=== PATIENT | female | born 1985 | race Two or more races ===

== ENCOUNTER 2025-06-05 05:12 | Inpatient (IN) | payer MEDICAID, OTHER ==
[~2025-06-05] VITALS: Ht 165.1 cm; Wt 105.3 kg
[2025-06-05] VITALS (7 sets, daily range): BP systolic 98–125; BP diastolic 67–76; PULSE 65–121; RESP 14–19; TEMP 97.7–98.9; O2SAT 95–100
[2025-06-05] MEDS: KETOROLAC TROMETH 30 MG/ML 1ML VIAL IV ONE (06:27)
--- NOTE | 2025-06-05 06:27 | ED.PDOC ---
History of Present Illness HPI Comments 40 y.o female presents to the ED via EMS for an evaluation of anxiety associated with chest pain and palpitations s/p taking a 50mg THC gummy earlier today. Patient reports taking gummy due to a persistent headache. She denies any fever, chills, abdominal pain, vision changes or dizziness. She has no medical history or allergies. Chief Complaint: Anxiety Time Seen by MD: 06:19 Reviewed Notes: Nurses Notes, Chemical Analytical Sampler Notes, Medications, Allergies Allergies: Coded Allergies: NO KNOWN ALLERGIES (Unverified , 06/05/25) Home Meds Active Scripts Meclizine HCl (Meclizine 25) 25 Mg Tab, 25 MG PO DAILY for 5 Days, #5 TAB Prov:BARRERA NORTH MD 06/05/25 Information Source: Patient Mode of Arrival: EMS Severity: Moderate Timing: Hours Duration: Since onset Past Medical History PAST MEDICAL HISTORY: Denies Surgical History: Denies all surgeries MINE UTILITY OPERATOR History: No Pertinent MINE UTILITY OPERATOR History Family History Family History: Reviewed,noncontributory to illness Social History Smoker: Non-Smoker Alcohol: Denies ETOH Use Drugs: Marijuana Lives In: Home Constitutional: denies: chills, diaphoresis, fatigue, fever, malaise, sweats, weakness, others EENTM: denies: blurred vision, double vision, ear bleeding, ear discharge, ear drainage, ear pain, ear ringing, eye pain, eye redness, hearing loss, mouth pain, mouth swelling, nasal discharge, nose bleeding, nose congestion, nose pain, photophobia, tearing, throat pain, throat swelling, voice changes, others Respiratory: denies: cough, hemoptysis, orthopnea, SOB at rest, shortness of breath, SOB with excertion, stridor, wheezing, others Cardiovascular: reports: chest pain, palpitations; denies: dizzy spells, diap horesis, Dyspnea on exertion, edema, irregular heart beat, left arm pain, lightheadedness, PND, syncope, others Gastrointestinal: denies: abdomen distended, abdominal pain, blood streaked bowels, constipated, diarrhea, dysphagia, difficulty swallowing, hematemesis, melena, nausea, poor appetite, poor fluid intake, rectal bleeding, rectal pain, vomiting, others Genitourinary: denies: abnormal vagina bleeding, burning, dyspareunia, dysuria, flank pain, frequency, hematuria, incontinence, pain, , vagina discharge, urgency, others Neurological: reports: headache; denies: dizziness, fainting, left sided numbness, left sided weakness, numbness, paresthesia, pre-existing deficit, right sided numbness, right sided weakness, seizure, speech problems, tingling, tremors, weakness, others Musculoskeletal: denies: back pain, gout, joint pain, joint swelling, muscle pain, muscle stiffness, neck pain, others Integumetry: denies: bruises, change in color, change in hair/nails, dryness, laceration, lesions, lumps, rash, wounds, others Allergic/Immunocompromised: denies: Difficulty Healing, Frequent Infections, Hives, Itching, others Hematologic/Lymphatic: denies: anemia, blood clots, easy bleeding, easy bruising, swollen glands, others Endocrine: denies: excessive hunger, excessive sweating, excessive thirst, excessive urination, flushing, intolerance to cold, intolerance to heat, unexplained weight gain, unexplained weight loss, others Psychiatric: reports: anxiety; denies: bipolar disorder, depression, hopeless, panic disorder, schizophrenia, sleepless, suicidal, others All Other Systems: Reviewed and Negative Physical Exam General Appearance: Moderate Distress HEENT: Normal ENT Inspection, Pharynx Normal, TMs Normal Neck: Full Range of Motion, Non-Tender, Normal, Normal Inspection Respiratory: Chest Non-Tender, Lungs Clear, No Accessory Muscle Use, No Respiratory Distress, Normal Breath Sounds Cardiovascular: No Edema, No JVD, No Murmur, No Gallop, Normal Peripheral Pulses, Regular Rate/Rhythm Breast Exam: Deferred Gastrointestinal: No Organomegaly, Non Tender, No Pulsatile Mass, Normal Bowel Sounds, Soft Genitalia: Deferred Pelvic: Deferred Rectal: Deferred Extremities: No calf tenderness, Normal capillary refill, Normal inspection, Normal range of motion, Non-tender, No pedal edema Musculoskeletal : Apperance: Normal Neurologic: Alert, respiratory technician II-XII nml as Tested, No Motor Deficits, Normal Affect, Normal Mood, No Sensory Deficits Cerebellar Function: Normal Reflexes: Normal Skin: Dry, Normal Color, Warm Peripheral Pulses: 3+ Radial (R), 3+ Radial (L) Lymphatic: No Adenopathy Was a procedure done? Was a procedure done?: No EKG EKG : Pulse Rate (adult): 109 [place]: Normal Cardiac Rhythm: ST Block: None Hypertrophy: None ST: Normal Differential Dx Considerations may include: cannabis-induced anxiety disorder, Angina, Electrolyte imbalance, Migraine, Clustered headache. X-Ray, Labs, Meds, VS Vital Signs Date Time Temp Pulse Resp B/P (MAP) Pulse Ox O2 Delivery O2 Flow Rate FiO2 06/05/25 08:00 99.5 108 15 126/76 (93) 98 99.5 06/05/25 06:27 109 06/05/25 06:00 97.8 107 15 133/75 (94) 98 97.8 06/05/25 05:40 107 15 98 Room Air* 0 21 06/05/25 05:25 109 06/05/25 05:15 98.5 115 18 164/94 100 98.5 Lab Test 06/05/25 09:00 06/05/25 08:26 06/05/25 06:47 Range/Units Troponin I High Sensitivity 63 *H 56 *H </=34 ng/L Urine Color Light-yellow Yellow Urine Clarity Clear Clear Urine pH 7.0 5.0-9.0 Urine Specific [place] 1.012 1.001-1.035 Urine Protein Negative Negative Urine Ketones Negative Negative Urine Blood Negative Negative /uL Urine Nitrite Negative Negative Urine Bilirubin Negative Negative Urine Urobilinogen Normal Negative mg/dL Urine Leukocyte Esterase Negative Negative /uL Urine RBC <1 0 - 4 /hpf Urine Microscopic WBC < 1 0-5 /HPF Urine Squamous Epithelial Cells Few <5 /hpf Urine Bacteria None seen None Seen /hpf Urine Yeast (Budding) Occasional None Seen /hpf Urine Glucose Normal Normal mg/dL White Blood Count 12.9 H 4.4-10.8 10^3/uL Red Blood Count 4.61 4.0-5.20 10^6/uL Hemoglobin 14.3 12.2-16.2 g/dL Hematocrit 41.6 36.0-46.0 % Mean Corpuscular Volume 90.1 80.0-100.0 fL Mean Corpuscular Hemoglobin 31.0 28.0-32.0 pg Mean Corpuscular Hemoglobin Concent 34.4 32.0-36.0 g/dL Red Cell Distribution Width 13.5 11.8-14.3 % Platelet Count 264 140-450 10^3/uL Mean Platelet Volume 9.6 6.9-10.8 fL Neutrophils (%) (Auto) 78.8 37.0-80.0 % Lymphocytes (%) (Auto) 13.2 10.0-50.0 % Monocytes (%) (Auto) 7.0 0.0-12.0 % Eosinophils (%) (Auto) 0.6 0.0-7.0 % Basophils (%) (Auto) 0.4 0.0-2.0 % Neutrophils # (Auto) 10.2 H 1.6-8.6 10 ^3/uL Lymphocytes # (Auto) 1.7 0.4-5.4 10 ^3/uL Monocytes # (Auto) 0.9 0-1.3 10 ^3/uL Eosinophils # (Auto) 0.1 0-0.8 10 ^3/uL Basophils # (Auto) 0.1 0-0.2 10 ^3/uL Nucleated Red Blood Cells 0.0 % Sodium Level 140 136-145 mmol/L Potassium Level 3.7 3.5-5.1 mmol/L Chloride Level 107 98-107 mmol/L Carbon Dioxide Level 22 20-31 mmol/L Anion Gap 11 5-15 Blood Urea Nitrogen 6 L 9-23 mg/dL Creatinine 0.68 0.550-1.02 mg/dL Glomerular Filtration Rate Calc 112 >90 mL/min BUN/Creatinine Ratio 8.8 L 10.0-20.0 Serum Glucose 138 H 74-106 mg/dL Calcium Level 9.6 8.7-10.4 mg/dL Current Medications Medications (Trade) Dose Ordered Sig/Daniela Route Start Time Stop Time Status Last Admin Ketorolac Tromethamine (Toradol Injection) 30 mg ONCE ONCE IV 06/05/25 06:30 06/05/25 06:31 DC 06/05/25 06:27 Aspirin 325 mg ONCE ONCE PO 06/05/25 06:30 06/05/25 06:31 DC 06/05/25 06:28 Patient alert. Vitals stable. Answering all questions. Moving all extremities. No distress. Saturation pristine on room air. Was given aspirin. Was given Toradol. She is comfortable. No acute process. No risk factors coronary artery disease. Came in because of chest pain. Cardiac marker elevated pain Was given aspirin. Was given pain medication. Possibly mitral valve. Echocardiogram. Cardiology consultation. Continue monitoring. [facility] approved inpatient admission [id number]. Time of 1ST Reevaluation: 06:27 Reevaluation 1ST: Unchanged Patient Education/Counseling: Diagnosis, Treatment, Prognosis Family Education/Counseling: No Family Present SEPSIS Sepsis Screen Date sepsis recognized/suspect: Jun 05, 2025 Time Sepsis recognized/suspect: 0540 Recent Procedure: No On Antibiotic Therapy: No Respiratory Rate >20: No Heart Rate >90: No Temp<36 C (96.8 F) or >38.3 C: No SBP <90 or MAP <65 mmHG: No New Acute Mental Status Change: No Is the patient on CPAP, BIPAP,: No Physician Orders Electrocardigram (06/05/25 05:34) Chest Portable (06/05/25 08:06) Troponin-I Hs (06/05/25 09:06) Vital Signs Date Time Temp Pulse Resp B/P (MAP) Pulse Ox O2 Delivery O2 Flow Rate FiO2 06/05/25 08:00 99.5 108 15 126/76 (93) 98 99.5 06/05/25 06:27 109 06/05/25 06:00 97.8 107 15 133/75 (94) 98 97.8 06/05/25 05:40 107 15 98 Room Air* 0 21 06/05/25 05:25 109 06/05/25 05:15 98.5 115 18 164/94 100 98.5 Laboratory Tests Test 06/05/25 06:47 White Blood Count 12.9 10^3/uL (4.4-10.8) H Medications Medications Dose Ordered Sig/Daniela Route Start Time Stop Time Status Last Admin Dose Admin Aspirin 325 mg ONCE ONCE PO 06/05/25 06:30 06/05/25 06:31 DC 06/05/25 06:28 Ketorolac Tromethamine 30 mg ONCE ONCE IV 06/05/25 06:30 06/05/25 06:31 DC 06/05/25 06:27 Departure 1 Departure Time of Disposition: 06:45 Impression: Primary Impression: Chest pain of unknown etiology Additional Impressions: Autonomic disorder Demand ischemia Disposition: ADMITTED INPATIENT Admit to: Med Surg Condition: Guarded e-Prescriptions Meclizine HCl (Meclizine 25) 25 Mg Tab 25 MG PO DAILY for 5 Days, #5 TAB Prov: BARRERA NORTH MD 06/05/25 Discharged With: Self Critical Care Note Critical Care Time?: Yes (90 min-critical care time only) Stability Stability form required: No I personally scribed for BARRERA NORTH MD ([facility]) on 06/05/25 at 06:27. Electronically submitted by Lenora Cortes ([facility]). BARRERA NORTH MD Jun 05, 2025 06:27
[2025-06-05] MEDS ORDERED: MECL1TAB42 PO (06:46)
[2025-06-05] MEDS: ONDANSETRON HCL 4 MG/2 ML VIAL IV ONE (08:22)
[2025-06-05] MEDS: NITROGLYCERIN 0.4 MG SL TAB SL ONE (08:23)
[2025-06-05] MEDS: MORPHINE SULFATE 4 MG/ML SYR/VIAL IV ONE (08:23)
--- NOTE | 2025-06-05 08:57 | DVH ---
EXAM: XY CHEST PORTABLE CLINICAL HISTORY: sob TECHNIQUE: Single AP view of the chest WID: COMPARISON: None FINDINGS: Lines and tubes: None Chest: Mild cardiomegaly with mild prominence of the central pulmonary vasculature. No pleural effusion, pneumothorax, or consolidation. Limited depth of inspiration. The osseous structures are grossly intact. IMPRESSION: 1. Mild cardiomegaly with mild prominence of the central pulmonary vasculature.
[2025-06-05 09:28] LABS: Urine Budding Yeast OCCASIONAL /hpf (None Seen); Urine Protein, UAD Negative (Negative)
[2025-06-05 09:29] LABS: Chloride 107 mmol/L (98-107); Potassium 3.7 mmol/L (3.5-5.1); Sodium 140 mmol/L (136-145)
[2025-06-05 09:30] LABS: Anion Gap 11 (5-15); Carbon Dioxide 22 mmol/L (20-31); Hematocrit 41.6 % (36.0-46.0); Hemoglobin 14.3 g/dL (12.2-16.2); Mean Corpuscular Hemoglobin 31.0 pg (28.0-32.0); Mean Corpuscular Volume 90.1 fL (80.0-100.0); Nucleated Red Blood Cells % 0.0 %
[2025-06-05 09:31] LABS: Calcium 9.6 mg/dL (8.7-10.4)
[2025-06-05 09:36] LABS: BUN/Creatinine Ratio 8.8 (10.0-20.0)
[2025-06-05 09:42] LABS: Blood Urea Nitrogen 6 mg/dL (9-23); Glucose 138 mg/dL (74-106)
[2025-06-05] MEDS ORDERED: NITROGLYCERIN 0.4 MG SL TAB SL PRN (12:15)
[2025-06-05] MEDS ORDERED: MORPHINE SULFATE INJ 2 MG/ml SYRG IV PRN ×2 (12:15→14:00)
[2025-06-05] MEDS: SODIUM CHLORIDE 0.9% 500 ML IV ONE ×2 (12:36→14:00)
[2025-06-05 13:26] LABS: Lactic Acid w/Reflex 2.8 mmol/L (0.4-2.0)
[2025-06-05 13:29] LABS: COVID19 ANTIGEN SOFIA FIA NEGATIVE (NEGATIVE)
--- NOTE | 2025-06-05 13:40 | DVHHPRES ---
History of Present Illness Resident Creating Document: KOURTNEYELIAS RESIDENT History of Present Illness Patient is a 40-year-old female with no significant medical history presented to the ED with a chief complaint of palpitations and shortness of breath which started earlier this morning. Patient reported that she was having headache in the morning following which she took a THC gummy and started to have shortness of breath and started feeling palpitations after that but denied any chest pain, nausea or vomiting following which she was brought to the ER for further evaluation. Patient denied any cough, phlegm, fever but reported having chills in the morning. Patient reports that she was recently diagnosed with a high ocular pressure for which she was prescribed latanoprost and was recently taken off latanoprost by her field trainer. Patient reports the headache last for hours, no photophobia, on the left side radiating from the left frontal to the left occipital, gets worse with the patient sits up and improves on lying down. Patient denied any other complaints of dysuria, diarrhea Medical history: Denies Surgical history: Denies Social history: Patient was a previous smoker of for about 5 years less than half a pack a day, denies any drug or alcohol use Home medications: None Review of Systems Review of Systems Patient reports to be feeling weak and reports she feels like she is high No chest pain Mild shortness of breath but is saturating more than 95% on room air Feels mildly anxious Allergies: Coded Allergies: NO KNOWN ALLERGIES (Unverified , 06/05/25) Medications Current Medications Medications Dose Ordered Sig/Daniela Route Start Time Stop Time Status Last Admin Dose Admin Nitroglycerin 0.4 mg Q5MINP PRN SL 06/05/25 12:15 Morphine Sulfate 2 mg Q30M PRN IV 06/05/25 12:15 Ceftriaxone Sodium 50 ml @ 100 mls/hr DAILY@09 IV 06/06/25 09:00 Exam Vital Signs Vital Signs Date Time Temp Pulse Resp B/P (MAP) Pulse Ox O2 Delivery O2 Flow Rate FiO2 06/05/25 13:30 111 18 122/76 (91) 95 06/05/25 12:00 99.3 99.3 06/05/25 10:10 Room Air* 0 21 Exam Skin - Patients skin is warm and dry. HEENT - normocephalic, atraumatic, moist mucous membranes, no conjunctival pallor or scleral icterus Neck - full ROM, no LAD, no JVD Pulmonary - B/L clear breath sounds without any rales or wheezing cardiovascular - regular S1,S2 heard, no added sounds, no murmurs heard. GI - soft, nontender abdomen. Bowel sounds normoactive Neurological - Patient is A/O X 4 . Bilateral upper extremity strength 5/5, bilateral lower extremity strength 5/5, no facial droop, normal speech, no tremor, no sensory deficiets. Labs/Xrays Labs Test 06/05/25 12:35 06/05/25 12:34 06/05/25 11:00 06/05/25 08:26 Range/Units Influenza Type A Antigen Negative Negative Influenza Type B Antigen Negative Negative SARS-CoV-2 Antigen (Rapid) Negative NEGATIVE Lactic Acid Level 2.8 *H 0.4-2.0 mmol/L Troponin I High Sensitivity 53 *H </=34 ng/L Urine Color Light-yellow Yellow Urine Clarity Clear Clear Urine pH 7.0 5.0-9.0 Urine Specific [place] 1.012 1.001-1.035 Urine Protein Negative Negative Urine Ketones Negative Negative Urine Blood Negative Negative /uL Urine Nitrite Negative Negative Urine Bilirubin Negative Negative Urine Urobilinogen Normal Negative mg/dL Urine Leukocyte Esterase Negative Negative /uL Urine RBC <1 0 - 4 /hpf Urine Microscopic WBC < 1 0-5 /HPF Urine Squamous Epithelial Cells Few <5 /hpf Urine Bacteria None seen None Seen /hpf Urine Yeast (Budding) Occasional None Seen /hpf Urine Glucose Normal Normal mg/dL Test 06/05/25 06:47 Range/Units White Blood Count 12.9 H 4.4-10.8 10^3/uL Red Blood Count 4.61 4.0-5.20 10^6/uL Hemoglobin 14.3 12.2-16.2 g/dL Hematocrit 41.6 36.0-46.0 % Mean Corpuscular Volume 90.1 80.0-100.0 fL Mean Corpuscular Hemoglobin 31.0 28.0-32.0 pg Mean Corpuscular Hemoglobin Concent 34.4 32.0-36.0 g/dL Red Cell Distribution Width 13.5 11.8-14.3 % Platelet Count 264 140-450 10^3/uL Mean Platelet Volume 9.6 6.9-10.8 fL Neutrophils (%) (Auto) 78.8 37.0-80.0 % Lymphocytes (%) (Auto) 13.2 10.0-50.0 % Monocytes (%) (Auto) 7.0 0.0-12.0 % Eosinophils (%) (Auto) 0.6 0.0-7.0 % Basophils (%) (Auto) 0.4 0.0-2.0 % Neutrophils # (Auto) 10.2 H 1.6-8.6 10 ^3/uL Lymphocytes # (Auto) 1.7 0.4-5.4 10 ^3/uL Monocytes # (Auto) 0.9 0-1.3 10 ^3/uL Eosinophils # (Auto) 0.1 0-0.8 10 ^3/uL Basophils # (Auto) 0.1 0-0.2 10 ^3/uL Nucleated Red Blood Cells 0.0 % Sodium Level 140 136-145 mmol/L Potassium Level 3.7 3.5-5.1 mmol/L Chloride Level 107 98-107 mmol/L Carbon Dioxide Level 22 20-31 mmol/L Anion Gap 11 5-15 Blood Urea Nitrogen 6 L 9-23 mg/dL Creatinine 0.68 0.550-1.02 mg/dL Glomerular Filtration Rate Calc 112 >90 mL/min BUN/Creatinine Ratio 8.8 L 10.0-20.0 Serum Glucose 138 H 74-106 mg/dL Calcium Level 9.6 8.7-10.4 mg/dL SEPSIS Sepsis Screen Date sepsis recognized/suspect: Jun 05, 2025 Time Sepsis recognized/suspect: 1235 Recent Procedure: No On Antibiotic Therapy: No Respiratory Rate >20: Yes Heart Rate >90: Yes Temp<36 C (96.8 F) or >38.3 C: No SBP <90 or MAP <65 mmHG: No New Acute Mental Status Change: No Is the patient on CPAP, BIPAP,: No Physician Orders Chest Portable (06/05/25 08:06) Electrocardigram (06/05/25 11:43) Electrocardigram (06/05/25 12:43) Electrocardigram (06/05/25 14:43) Admit (06/05/25 12:04) Nitroglycerin Sublingual (Ntrostat Subli (06/05/25 12:15) Oxygen By Nasal Cannula (06/05/25 12:04) Stat Ekg For Chest Pain (06/05/25 12:04) Notify Md Of Changes From Base (06/05/25 12:04) Airline Dispatcher For 24 Hours (06/05/25 12:04) Emergency Dysrhythmia Protocol (06/05/25 12:04) Blood Culture (06/05/25 12:04) Ceftriaxone 1gm/50ml (Rocephin) (06/06/25 09:00) Echo 2d Mode Cardiac Dop (06/05/25 12:04) Morphine Sulfate Injection (06/05/25 12:15) Sodium Chloride 0.9% (06/05/25 14:00) D-Dimer (06/05/25 13:36) Vital Signs Date Time Temp Pulse Resp B/P (MAP) Pulse Ox O2 Delivery O2 Flow Rate FiO2 06/05/25 13:30 111 18 122/76 (91) 95 06/05/25 12:00 99.3 114 15 140/85 (103) 98 99.3 06/05/25 10:10 99 Room Air* 0 21 06/05/25 10:07 115 18 100 Room Air* 0 21 06/05/25 10:00 116 15 121/77 (92) 98 06/05/25 08:00 99.5 108 15 126/76 (93) 98 99.5 06/05/25 06:27 109 06/05/25 06:00 97.8 107 15 133/75 (94) 98 97.8 06/05/25 05:40 107 15 98 Room Air* 0 21 Laboratory Tests Test 06/05/25 06:47 06/05/25 12:34 White Blood Count 12.9 10^3/uL (4.4-10.8) H Lactic Acid Level 2.8 mmol/L (0.4-2.0) *H Medications Medications Dose Ordered Sig/Daniela Route Start Time Stop Time Status Last Admin Dose Admin Aspirin 325 mg ONCE ONCE PO 06/05/25 06:30 06/05/25 06:31 DC 06/05/25 06:28 325 MG Ceftriaxone Sodium 50 ml @ 100 mls/hr ONCE ONCE IV 06/05/25 12:15 06/05/25 12:44 DC 06/05/25 12:41 100 MLS/HR Ketorolac Tromethamine 30 mg ONCE ONCE IV 06/05/25 06:30 06/05/25 06:31 DC 06/05/25 06:27 30 MG Sodium Chloride 500 ml @ 500 mls/hr Q1H ONCE IV 06/05/25 12:15 06/05/25 13:14 DC 06/05/25 12:36 500 MLS/HR Assessment/Plan Assessment/Plan Probable pneumonia likely due to Gram +/- bacteria Sepsis likely due to pneumonia Probable obstructive sleep apnea - IV antibiotics vanc+ceftriaxone - IV fluids - echocardiogram pending - blood cultures, sputum cultures pending NSTEMI likely type 2 due to demand ischemia from sepsis Cardiomegaly ?Pulmonary hypertension from [place] - ECG showed sinus rhythm without any acute ST or T-wave changes - IV fluids - echo pending PUD prophylaxis: Protonix DVT prophylaxis: Enoxaparin Goals of care discussed with the patient and her sister at bedside for over 90 minutes. Full code Time spent: 37 minutes Plan discussed with Dr. Carrington Plan discussed with: Patient, Other (RN, sisters) My Orders Orders - ELIAS OCONNELL RESIDENT Procedure Category Date Status Time Electrocardigram EKG 06/05/25 Logged 11:43 Electrocardigram EKG 06/05/25 Logged 12:43 Electrocardigram EKG 06/05/25 Logged 14:43 Admit ADMIT 06/05/25 Transmitted 12:04 Nitroglycerin PHA 06/05/25 In Process Sublingual (Ntrostat 12:15 Oxygen By Nasal RT 06/05/25 Transmitted Cannula 12:04 Stat Ekg For Chest ABRAN 06/05/25 In Process Pain 12:04 Notify Of Changes ABRAN 06/05/25 In Process From Base 12:04 Airline Dispatcher For ABRAN 06/05/25 In Process 24 Hours 12:04 Emergency Dysrhythmia ABRAN 06/05/25 In Process Protocol 12:04 Blood Culture KATE 06/05/25 In Process 12:04 Ceftriaxone 1gm/50ml PHA 06/06/25 In Process (Rocephin) 09:00 Echo 2d Mode Cardiac US 06/05/25 Logged DOP 12:04 Morphine Sulfate PHA 06/05/25 In Process Injection 12:15 Sodium Chloride 0.9% PHA 06/05/25 Logged 14:00 D-Dimer LAB 06/05/25 Logged 13:36 Date of Service: Jun 05, 2025 Billing Provider: MICHELA CARRINGTON MD Common Visit Codes: [id number] INP/OBS CARE (HIGH) Secondary Visit Codes: [id number] CARE PLAN 30 MINUTES ELIAS OCONNELL RESIDENT Jun 05, 2025 13:40
[2025-06-05] MEDS: PANTOPRAZOLE 40 MG TAB PO ONE (14:00)
[2025-06-05] MEDS ORDERED: KETOROLAC TROMETH 30 MG/ML 1ML VIAL IV PRN (14:00)
[2025-06-05] MEDS ORDERED: ONDANSETRON HCL 4 MG/2 ML VIAL IV PRN (14:00)
[2025-06-05] MEDS ORDERED: ACETAMINOPHEN 325 MG TAB PO PRN (14:00)
[2025-06-05] MEDS: DOXYCYCLINE 100 MG TAB/CAP PO ONE (14:00)
[2025-06-05] MEDS: LACTATED RINGER'S 1,000 ML IV ONE (16:00)
[2025-06-05] MEDS ORDERED: VANCOMYCIN PER PHARMACY 0 MG IV SCH (16:00)
[2025-06-05] MEDS: VANCOMYCIN 1.75GM/350ML 350 ML IV ONE (16:15)
[2025-06-05] MEDS ORDERED: DOXYCYCLINE 100 MG TAB/CAP PO SCH (22:00)
[2025-06-06] VITALS (8 sets, daily range): BP systolic 119–141; BP diastolic 73–92; PULSE 89–119; RESP 18–20; TEMP 96.7–98.2; O2SAT 96–99
[2025-06-06 05:52] LABS: Hematocrit 39.0 % (36.0-46.0); Hemoglobin 13.4 g/dL (12.2-16.2); Mean Corpuscular Hemoglobin 31.0 pg (28.0-32.0); Mean Corpuscular Volume 90.0 fL (80.0-100.0); Nucleated Red Blood Cells % 0.1 %
[2025-06-06] MEDS: PANTOPRAZOLE 40 MG TAB PO SCH (06:07)
[2025-06-06 06:08] LABS: Anion Gap 8 (5-15); Carbon Dioxide 26 mmol/L (20-31); Potassium 3.9 mmol/L (3.5-5.1); Sodium 143 mmol/L (136-145)
[2025-06-06 06:09] LABS: Chloride 109 mmol/L (98-107)
[2025-06-06 06:11] LABS: Calcium 8.6 mg/dL (8.7-10.4)
[2025-06-06 06:14] LABS: Glucose 92 mg/dL (74-106)
[2025-06-06 06:15] LABS: BUN/Creatinine Ratio 13.8 (10.0-20.0); Blood Urea Nitrogen 8 mg/dL (9-23)
[2025-06-06] MEDS: ENOXAPARIN SOD 40 MG/0.4 ML SYRINGE SC SCH (09:08)
[2025-06-06] MEDS: VANCOMYCIN 1.25GM/250ML 250 ML IV SCH (11:30)
--- NOTE | 2025-06-06 12:32 | DVHSR ---
APPROVED REPORT EXAM: Two-dimensional and M-mode echocardiogram with Doppler and color Doppler. Blood Pressure: 134/92 mmHg INDICATION SOB Pulm congestion Probable hari RISK FACTORS Obesity: Height: 5'5", Weight: 232 DIMENSIONS LVDd 4.7 (3.8-5.7cm) LA (2D) 3.4 (1.9-4.0cm) Aortic Root 3.1 (2.0-3.7cm) LVDs 3.1 (2.5-4.0cm) LA (MM) (1.9-4.0cm) Aortic Cusp Exc 1.8 (1.5-2.0cm) EF (%) 60.0 (55-70%) Rt. Atrium 3.0 (1.9-4.0cm) Asc. Aorta cm IVSd 0.7 (0.7-1.1cm) RV (D) (1.8-2.4cm) PWd 1.0 (0.7-1.1cm) Mitral Valve Mitral Mitral Stenosis E wave 1.12m/s MV Mean GR. mmHg A wave 0.72m/s MV Peak GR. mmHg E/A ratio 1.6 2D MVA cm2 DECEL Time 162ms PRESS 1/2 Time ms Aortic Valve Aortic Valve Aortic Stenosis V1 1.33m/s AO Mean GR. 4mmHg V2 1.44m/s AO Peak GR. 8mmHg LVOT Diameter 1.9 (1.8-2.4cm) Doppler JEMMA 2.62cm2 Pulmonic Valve V2 1.06m/s Other Information Technically limited study due to body habitus. Conclusion lvef 65% normal rv function normal atria no severe valve abnormalities noted
[2025-06-07] VITALS (8 sets, daily range): BP systolic 128–140; BP diastolic 68–93; PULSE 79–98; RESP 14–18; TEMP 97.6–98.8; O2SAT 97–100
[2025-06-07 10:41] LABS: Hematocrit 41.9 % (36.0-46.0); Hemoglobin 14.5 g/dL (12.2-16.2); Mean Corpuscular Hemoglobin 30.9 pg (28.0-32.0); Mean Corpuscular Volume 89.4 fL (80.0-100.0); Nucleated Red Blood Cells % 0.0 %
--- NOTE | 2025-06-07 12:02 | DVHPN2 ---
Reviewed: Care Plan, H&P, Labs, Medications, Previous Orders, Radiology Changes from previous H/P or p: No Changes General: Per HPI Objective Vitals Vital Signs Date Time Temp Pulse Resp B/P (MAP) Pulse Ox O2 Delivery O2 Flow Rate FiO2 06/07/25 08:58 98.3 79 18 138/80 (99) 98 98.3 06/07/25 08:00 Room Air* 0 21 Intake/Output Intake and Output 06/07/25 07:00 Intake Total 1550 ml Balance 1550 ml Intake Oral 1000 ml IV Total 550 ml # Voids 13 Medications Current Medications Medications Dose Ordered Sig/Daniela Route Start Time Stop Time Status Last Admin Dose Admin Nitroglycerin 0.4 mg Q5MINP PRN SL 06/05/25 12:15 Morphine Sulfate 2 mg Q30M PRN IV 06/05/25 12:15 Ceftriaxone Sodium 50 ml @ 100 mls/hr DAILY@09 IV 06/06/25 09:00 06/07/25 08:41 100 MLS/HR Acetaminophen 650 mg Q6HP PRN PO 06/05/25 14:00 Ketorolac Tromethamine 15 mg Q6HPRN PRN IV 06/05/25 14:00 06/10/25 13:59 Morphine Sulfate 2 mg Q6HPRN PRN IV 06/05/25 14:00 Ondansetron HCl 4 mg Q6HPRN PRN IV 06/05/25 14:00 Pantoprazole Sodium 40 mg DAILY@0600 PO 06/06/25 06:00 06/07/25 05:09 40 MG Enoxaparin Sodium 40 mg DAILY SC 06/06/25 10:00 06/07/25 10:00 40 MG Vancomycin HCl 0 ml @ 0 mls/hr PER PHARMACY IV 06/05/25 16:00 Vancomycin HCl 250 ml @ 200 mls/hr Q8H IV 06/06/25 10:00 06/07/25 01:09 200 MLS/HR Laboratory Results Laboratory Tests 06/06/25 05:18 06/07/25 09:40 Urinalysis Test 06/05/25 08:26 Urine Color Light-yellow (Yellow) Urine Clarity Clear (Clear) Urine pH 7.0 (5.0-9.0) Urine Specific [place] 1.012 (1.001-1.035) Urine Protein Negative (Negative) Urine Ketones Negative (Negative) Urine Blood Negative /uL (Negative) Urine Nitrite Negative (Negative) Urine Bilirubin Negative (Negative) Urine Urobilinogen Normal mg/dL (Negative) Urine Leukocyte Esterase Negative /uL (Negative) Urine RBC <1 /hpf (0 - 4) Urine Microscopic WBC < 1 /HPF (0-5) Urine Squamous Epithelial Cells Few /hpf (<5) Urine Bacteria None seen /hpf (None Seen) Urine Yeast (Budding) Occasional /hpf (None Urine Glucose Normal mg/dL (Normal) Microbiology Microbiology Date/Time Source Procedure Growth Status 06/05/25 12:41 Blood Blood Culture - Preliminary NO GROWTH AFTER 24 HOURS OF INCUBATION. Resulted Assessment/Plan Assessment/Plan Patient is a 40-year-old female with no significant medical history presented to the ED with a chief complaint of palpitations and shortness of breath which started earlier this morning. Patient reported that she was having headache in the morning following which she took a THC gummy and started to have shortness of breath and started feeling palpitations after that but denied any chest pain, nausea or vomiting following which she was brought to the ER for further evaluation. Patient denied any cough, phlegm, fever but reported having chills in the morning. 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 Patient reports the headache last for hours, no photophobia, on the left side radiating from the left frontal to the left occipital, gets worse with the patient sits up and improves on lying down. Patient denied any other complaints of dysuria, diarrhea Probable pneumonia likely due to Gram +/- bacteria Sepsis likely due to pneumonia Probable obstructive sleep apnea - IV antibiotics vanc+ceftriaxone - IV fluids - echocardiogram pending - blood cultures, sputum cultures pending NSTEMI likely type 2 due to demand ischemia from sepsis Cardiomegaly ?Pulmonary hypertension from [place] chest pain, rule out ACS - ECG showed sinus rhythm without any acute ST or T-wave changes - IV fluids - echo pending - presentation team member consulted PUD prophylaxis: Protonix DVT prophylaxis: Enoxaparin Goals of care discussed with the patient and her sister at bedside for over 90 minutes. Full code Time spent: 37 minutes Plan discussed with: Patient My Orders Orders - JIMBO REED DO Procedure Category Date Status Time * Cardiology Consult CONS 06/07/25 Transmitted 11:57 Date of Service: Jun 06, 2025 Billing Provider: JIMBO REED DO Common Visit Codes: [id number] INP/OBS CARE(HIGH) JIMBO REED DO Jun 07, 2025 12:02
--- NOTE | 2025-06-07 12:09 | DVHPN2 ---
Reviewed: Care Plan, H&P, Labs, Medications, Previous Orders, Radiology Changes from previous H/P or p: No Changes General: Per HPI Objective Vitals Vital Signs Date Time Temp Pulse Resp B/P (MAP) Pulse Ox O2 Delivery O2 Flow Rate FiO2 06/07/25 08:58 98.3 79 18 138/80 (99) 98 98.3 06/07/25 08:00 Room Air* 0 21 Intake/Output Intake and Output 06/07/25 07:00 Intake Total 1550 ml Balance 1550 ml Intake Oral 1000 ml IV Total 550 ml # Voids 13 Medications Current Medications Medications Dose Ordered Sig/Daniela Route Start Time Stop Time Status Last Admin Dose Admin Nitroglycerin 0.4 mg Q5MINP PRN SL 06/05/25 12:15 Morphine Sulfate 2 mg Q30M PRN IV 06/05/25 12:15 Ceftriaxone Sodium 50 ml @ 100 mls/hr DAILY@09 IV 06/06/25 09:00 06/07/25 08:41 100 MLS/HR Acetaminophen 650 mg Q6HP PRN PO 06/05/25 14:00 Ketorolac Tromethamine 15 mg Q6HPRN PRN IV 06/05/25 14:00 06/10/25 13:59 Morphine Sulfate 2 mg Q6HPRN PRN IV 06/05/25 14:00 Ondansetron HCl 4 mg Q6HPRN PRN IV 06/05/25 14:00 Pantoprazole Sodium 40 mg DAILY@0600 PO 06/06/25 06:00 06/07/25 05:09 40 MG Enoxaparin Sodium 40 mg DAILY SC 06/06/25 10:00 06/07/25 10:00 40 MG Vancomycin HCl 0 ml @ 0 mls/hr PER PHARMACY IV 06/05/25 16:00 Vancomycin HCl 250 ml @ 200 mls/hr Q8H IV 06/06/25 10:00 06/07/25 01:09 200 MLS/HR Laboratory Results Laboratory Tests 06/06/25 05:18 06/07/25 09:40 Urinalysis Test 06/05/25 08:26 Urine Color Light-yellow (Yellow) Urine Clarity Clear (Clear) Urine pH 7.0 (5.0-9.0) Urine Specific [place] 1.012 (1.001-1.035) Urine Protein Negative (Negative) Urine Ketones Negative (Negative) Urine Blood Negative /uL (Negative) Urine Nitrite Negative (Negative) Urine Bilirubin Negative (Negative) Urine Urobilinogen Normal mg/dL (Negative) Urine Leukocyte Esterase Negative /uL (Negative) Urine RBC <1 /hpf (0 - 4) Urine Microscopic WBC < 1 /HPF (0-5) Urine Squamous Epithelial Cells Few /hpf (<5) Urine Bacteria None seen /hpf (None Seen) Urine Yeast (Budding) Occasional /hpf (None Urine Glucose Normal mg/dL (Normal) Microbiology Microbiology Date/Time Source Procedure Growth Status 06/05/25 12:41 Blood Blood Culture - Preliminary NO GROWTH AFTER 24 HOURS OF INCUBATION. Resulted Assessment/Plan Assessment/Plan Patient is a 40-year-old female with no significant medical history presented to the ED with a chief complaint of palpitations and shortness of breath which started earlier this morning. Patient reported that she was having headache in the morning following which she took a THC gummy and started to have shortness of breath and started feeling palpitations after that but denied any chest pain, nausea or vomiting following which she was brought to the ER for further evaluation. Patient denied any cough, phlegm, fever but reported having chills in the morning. 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 Patient reports the headache last for hours, no photophobia, on the left side radiating from the left frontal to the left occipital, gets worse with the patient sits up and improves on lying down. Patient denied any other complaints of dysuria, diarrhea Probable pneumonia likely due to Gram +/- bacteria Sepsis likely due to pneumonia Probable obstructive sleep apnea - IV antibiotics vanc+ceftriaxone - IV fluids - echocardiogram pending - blood cultures, sputum cultures pending NSTEMI likely type 2 due to demand ischemia from sepsis Cardiomegaly ?Pulmonary hypertension from [place] chest pain, rule out ACS - ECG showed sinus rhythm without any acute ST or T-wave changes - IV fluids - echo pending - assembly manager consulted PUD prophylaxis: Protonix DVT prophylaxis: Enoxaparin Goals of care discussed with the patient and her sister at bedside for over 90 minutes. Full code Time spent: 37 minutes Plan discussed with: Patient My Orders Orders - JIMBO REED DO Procedure Category Date Status Time * Cardiology Consult CONS 06/07/25 Transmitted 11:57 Date of Service: Jun 07, 2025 Billing Provider: JIMBO REED DO Common Visit Codes: [id number] INP/OBS CARE(HIGH) JIMBO REED DO Jun 07, 2025 12:08
[2025-06-08 01:00] VITALS: BP 136/95; PULSE 82; RESP 16; TEMP 96.1; O2SAT 98
[2025-06-08 05:00] VITALS: BP 152/95; PULSE 93; RESP 17; TEMP 96.6; O2SAT 98
[2025-06-08 05:43] LABS: Hematocrit 39.6 % (36.0-46.0); Hemoglobin 13.8 g/dL (12.2-16.2); Mean Corpuscular Hemoglobin 31.1 pg (28.0-32.0); Mean Corpuscular Volume 89.6 fL (80.0-100.0); Nucleated Red Blood Cells % 0.1 %
[2025-06-08 08:00] VITALS: PULSE 88; RESP 18; O2SAT 98
[2025-06-08 08:38] VITALS: BP 115/71; PULSE 91; RESP 17; TEMP 97.7; O2SAT 97
--- NOTE | 2025-06-08 10:21 | DVHINCON2 ---
Date Seen: Jun 08, [address] Caro Reason for Consultation Elevated trop History of Present Illness 40-year-old female with no significant past medical history presents to the ED via EMS for chest palpitations and shortness of breath. The patient reports that on Monday she developed a headache and ingested a with gummy for relief, after which she immediately began experiencing sudden chest palpitations, rapid heartbeat, and increasing shortness of breath, prompting her to call 911. She denies prior similar episodes. In the ED, EKG showed normal sinus rhythm without acute ischemic changes, and serial troponins were 56/63/53. Chest x-ray demonstrated mild cardiomegaly with mild prominence of central pulmonary vascular. Lactic acid was elevated and D-dimer was mildly elevated at 0.51. The patient is an ex-smoker. She currently denies diaphoresis, dizziness, syncope, chest pain, palpitations, or shortness of breath. Past Medical History Denies Past Surgical History Denies Family History: Alcoholism Colon cancer Diabetes mellitus Hypertension Family History Reviewed, non-contributory to the management of this case. Social History The patient lives at home, denies smoking, alcohol or illicit drugs abuse. Allergies: Coded Allergies: NO KNOWN ALLERGIES (Unverified , 06/05/25) Home Meds Active Scripts Meclizine HCl (Meclizine 25) 25 Mg Tab, 25 MG PO DAILY for 5 Days, #5 TAB Prov:BARRERA NORTH MD 06/05/25 Review of Systems Constitutional: No symptom reported Ears, Nose, & Throat: No symptom reported Eyes: No symptom reported Neurological: No symptoms reported Pulmonary/Respiratory: Shortness of breath Cardiovascular: Chest palpitations, fast heart rate Gastrointestinal: No symptom reported Genitourinary: No symptom reported Musculoskeletal: No symptom reported Skin: No symptom reported Psychiatric: No symptom reported Endocrine: No symptom reported Hemotologic/Lymphatic: No symptom reported Vital Signs Vital Signs Date Time Temp Pulse Resp B/P (MAP) Pulse Ox O2 Delivery O2 Flow Rate FiO2 06/08/25 08:38 97.7 91 17 115/71 (86) 97 97.7 06/07/25 20:00 Room Air* 0 21 Physical Exam INITIAL VITAL SIGNS: Reviewed by me GENERAL: Alert and interactive. No acute distress. HEAD: Head is normocephalic and atraumatic. EYES: EOMI, PERRL. No scleral icterus. No conjunctival injection. ENT: Moist mucous membranes. NECK: Supple, No masses, Full range of motion. RESPIRATORY: No tachypnea. Clear breath sounds bilaterally. No wheezing, rales, rhonchi. CV: Regular rate and rhythm. No murmurs, rubs, or gallops. GI/: Active bowel sounds, soft, nondistended, nontender. No guarding. No rebound. No masses. No CVA tenderness. INTEGUMENTARY: Warm and dry. No obvious rashes. NEUROLOGIC: Alert and oriented. Face is symmetric. Speech is normal. Moves all extremities equally. Labs/Diagnostic Data Labs Test 06/08/25 05:12 06/07/25 09:40 06/06/25 05:18 06/05/25 23:03 Range/Units White Blood Count 12.3 H 4.4-10.8 10^3/uL Red Blood Count 4.42 4.0-5.20 10^6/uL Hemoglobin 13.8 12.2-16.2 g/dL Hematocrit 39.6 36.0-46.0 % Mean Corpuscular Volume 89.6 80.0-100.0 fL Mean Corpuscular Hemoglobin 31.1 28.0-32.0 pg Mean Corpuscular Hemoglobin Concent 34.7 32.0-36.0 g/dL Red Cell Distribution Width 13.7 11.8-14.3 % Platelet Count 282 140-450 10^3/uL Mean Platelet Volume 8.5 6.9-10.8 fL Neutrophils (%) (Auto) 66.4 37.0-80.0 % Lymphocytes (%) (Auto) 25.3 10.0-50.0 % Monocytes (%) (Auto) 6.3 0.0-12.0 % Eosinophils (%) (Auto) 1.6 0.0-7.0 % Basophils (%) (Auto) 0.4 0.0-2.0 % Neutrophils # (Auto) 8.1 1.6-8.6 10 ^3/uL Lymphocytes # (Auto) 3.1 0.4-5.4 10 ^3/uL Monocytes # (Auto) 0.8 0-1.3 10 ^3/uL Eosinophils # (Auto) 0.2 0-0.8 10 ^3/uL Basophils # (Auto) 0.1 0-0.2 10 ^3/uL Nucleated Red Blood Cells 0.1 % Creatinine 0.66 0.550-1.02 mg/dL Glomerular Filtration Rate Calc 113 >90 mL/min Vancomycin Level Trough 16.4 H 5-10 ug/mL Sodium Level 143 136-145 mmol/L Potassium Level 3.9 3.5-5.1 mmol/L Chloride Level 109 H 98-107 mmol/L Carbon Dioxide Level 26 20-31 mmol/L Anion Gap 8 5-15 Blood Urea Nitrogen 8 L 9-23 mg/dL BUN/Creatinine Ratio 13.8 10.0-20.0 Serum Glucose 92 74-106 mg/dL Calcium Level 8.6 L 8.7-10.4 mg/dL Thyroid Stimulating Hormone (TSH) 2.99 0.55-4.78 uIU/mL Random Vancomycin Level 8.4 5-10 ug/mL Lactic Acid Level 1.5 0.4-2.0 mmol/L Test 06/05/25 12:35 06/05/25 11:00 06/05/25 08:26 Range/Units Influenza Type A Antigen Negative Negative Influenza Type B Antigen Negative Negative SARS-CoV-2 Antigen (Rapid) Negative NEGATIVE D-Dimer, Quantitative 0.51 H 0.0-0.49 mg/L FEU Troponin I High Sensitivity 53 *H </=34 ng/L Urine Color Light-yellow Yellow Urine Clarity Clear Clear Urine pH 7.0 5.0-9.0 Urine Specific [place] 1.012 1.001-1.035 Urine Protein Negative Negative Urine Ketones Negative Negative Urine Blood Negative Negative /uL Urine Nitrite Negative Negative Urine Bilirubin Negative Negative Urine Urobilinogen Normal Negative mg/dL Urine Leukocyte Esterase Negative Negative /uL Urine RBC <1 0 - 4 /hpf Urine Microscopic WBC < 1 0-5 /HPF Urine Squamous Epithelial Cells Few <5 /hpf Urine Bacteria None seen None Seen /hpf Urine Yeast (Budding) Occasional None Seen /hpf Urine Glucose Normal Normal mg/dL Microbiology Date/Time Source Procedure Growth Status 06/05/25 12:41 Blood Blood Culture - Preliminary NO GROWTH AFTER 48 HOURS OF INCUBATION. Resulted PROCEDURE(s): CXRP - CHEST PORTABLE REASON: sob ORDER NUMBER(s): [id number], ACCESSION NUMBER(s): [id number] EXAM: XY CHEST PORTABLE CLINICAL HISTORY: sob TECHNIQUE: Single AP view of the chest WID: COMPARISON: None FINDINGS: Lines and tubes: None Chest: Mild cardiomegaly with mild prominence of the central pulmonary vasculature. No pleural effusion, pneumothorax, or consolidation. Limited depth of inspiration. The osseous structures are grossly intact. IMPRESSION: 1. Mild cardiomegaly with mild prominence of the central pulmonary vasculature. Assessment Sepsis, Pneumonia NSTEMI possible type 2 due to above Cardiomegaly on chest x-ray Mild elevation of ddmer Ex-smoker Obese type II Plan/Recommendation (Dr. Tabor ): Plan discussed with Dr. Tabor. Chest palpitation likely secondary to cannabis ingestion. Symptoms temporarily related to weed gummy. EKG normal, troponins not suggestive of ACS. No arrhythmia captured. Echocardiogram revealed EF 65% Advised to follow-up with Cardiology at [place] This medical document was created using an electronic medical record system with voice recognition software and computerized dictation system. Although this document has been carefully reviewed, there might still be some phonetic and typographical errors. Occasional wrong-word or ``sound-alike substitutions may have occurred due to the inherent limitations of voice recognition software. These areas are purely typographical due to imperfections of the software programs and do not reflect any compromise in the patient's medical care. Please read the chart carefully and recognize, using context, where these substitutions have occurred. Plan discussed with: Patient Plan discussed with: Patient NYHA Physical activity limitations: NA Date of Service: Jun 08, 2025 Billing Provider: ARCHANA TABOR MD Cardiology Common Codes: NOT BILLABLE Cardiology Consultation Codes: [id number] CONSULT <45MIN SANTO EVANS SIGN LANGUAGE TEACHER Jun 08, 2025 10:21
[2025-06-08] MEDS ORDERED: AML5T PO (12:40)
--- NOTE | 2025-06-08 12:41 | DVHDS2 ---
Discharge Summary Date of Admission Jun 05, 2025 at 12:04 Date of Discharge: Jun 08, 2025 Labs/Diagnostic Data: Laboratory Results Test 06/08/25 05:12 06/07/25 09:40 06/06/25 05:18 06/05/25 23:03 White Blood Count 12.3 10^3/uL (4.4-10.8) Red Blood Count 4.42 10^6/uL (4.0-5.20) Hemoglobin 13.8 g/dL (12.2-16.2) Hematocrit 39.6 % (36.0-46.0) Mean Corpuscular Volume 89.6 fL (80.0-100.0) Mean Corpuscular Hemoglobin 31.1 pg (28.0-32.0) Mean Corpuscular Hemoglobin Concent 34.7 g/dL (32.0-36.0) Red Cell Distribution Width 13.7 % (11.8-14.3) Platelet Count 282 10^3/uL (140-450) Mean Platelet Volume 8.5 fL (6.9-10.8) Neutrophils (%) (Auto) 66.4 % (37.0-80.0) Lymphocytes (%) (Auto) 25.3 % (10.0-50.0) Monocytes (%) (Auto) 6.3 % (0.0-12.0) Eosinophils (%) (Auto) 1.6 % (0.0-7.0) Basophils (%) (Auto) 0.4 % (0.0-2.0) Neutrophils # (Auto) 8.1 10 ^3/uL (1.6-8.6) Lymphocytes # (Auto) 3.1 10 ^3/uL (0.4-5.4) Monocytes # (Auto) 0.8 10 ^3/uL (0-1.3) Eosinophils # (Auto) 0.2 10 ^3/uL (0-0.8) Basophils # (Auto) 0.1 10 ^3/uL (0-0.2) Nucleated Red Blood Cells 0.1 % Creatinine 0.66 mg/dL (0.550-1.02) Glomerular Filtration Rate Calc 113 mL/min (>90) Vancomycin Level Trough 16.4 ug/mL (5-10) Sodium Level 143 mmol/L (136-145) Potassium Level 3.9 mmol/L (3.5-5.1) Chloride Level 109 mmol/L (98-107) Carbon Dioxide Level 26 mmol/L (20-31) Anion Gap 8 (5-15) Blood Urea Nitrogen 8 mg/dL (9-23) BUN/Creatinine Ratio 13.8 (10.0-20.0) Serum Glucose 92 mg/dL (74-106) Calcium Level 8.6 mg/dL (8.7-10.4) Thyroid Stimulating Hormone (TSH) 2.99 uIU/mL (0.55-4.78) Random Vancomycin Level 8.4 ug/mL (5-10) Lactic Acid Level 1.5 mmol/L (0.4-2.0) Test 06/05/25 12:35 06/05/25 11:00 06/05/25 08:26 Influenza Type A Antigen Negative (Negative) Influenza Type B Antigen Negative (Negative) SARS-CoV-2 Antigen (Rapid) Negative (NEGATIVE) D-Dimer, Quantitative 0.51 mg/L FEU (0.0-0.49) Troponin I High Sensitivity 53 ng/L (</=34) Urine Color Light-yellow (Yellow) Urine Clarity Clear (Clear) Urine pH 7.0 (5.0-9.0) Urine Specific [place] 1.012 (1.001-1.035) Urine Protein Negative (Negative) Urine Ketones Negative (Negative) Urine Blood Negative /uL (Negative) Urine Nitrite Negative (Negative) Urine Bilirubin Negative (Negative) Urine Urobilinogen Normal mg/dL (Negative) Urine Leukocyte Esterase Negative /uL (Negative) Urine RBC <1 /hpf (0 - 4) Urine Microscopic WBC < 1 /HPF (0-5) Urine Squamous Epithelial Cells Few /hpf (<5) Urine Bacteria None seen /hpf (None Seen) Urine Yeast (Budding) Occasional /hpf (None Urine Glucose Normal mg/dL (Normal) Other Laboratory Tests 06/08/25 05:12 06/06/25 05:18 Brief Hx & Hospital Course: Patient is a 40-year-old female with no significant medical history presented to the ED with a chief complaint of palpitations and shortness of breath which started earlier this morning. Patient reported that she was having headache in the morning following which she took a THC gummy and started to have shortness of breath and started feeling palpitations after that but denied any chest pain, nausea or vomiting following which she was brought to the ER for further evaluation. Patient denied any cough, phlegm, fever but reported having chills in the morning. 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 Patient reports the headache last for hours, no photophobia, on the left side radiating from the left frontal to the left occipital, gets worse with the patient sits up and improves on lying down. Patient denied any other complaints of dysuria, diarrhea Probable pneumonia likely due to Gram +/- bacteria Sepsis likely due to pneumonia Probable obstructive sleep apnea - IV antibiotics vanc+ceftriaxone - IV fluids - echocardiogram pending - blood cultures, sputum cultures pending NSTEMI likely type 2 due to demand ischemia from sepsis Cardiomegaly ?Pulmonary hypertension from [place] chest pain, rule out ACS - ECG showed sinus rhythm without any acute ST or T-wave changes - IV fluids - echo pending - aquatics assistant department head consulted PUD prophylaxis: Protonix DVT prophylaxis: Enoxaparin pt seen by cardiology, chest pain is non-cardiac pnemonia improved, sent home with more oral Abx Condition at Discharge: Fair Final Diagnosis/Problems List see above Discharge Disposition: Home Discharge Instruct/Medications Diet: Cardiac 2g Na,low cholest Activity: No Restrictions, As Tolerated Scheduled Amlodipine Besylate (Norvasc Tablet), 1 TAB PO DAILY Meclizine HCl (Meclizine 25), 25 MG PO DAILY Discharge Statement: "Patient was advised to return to the ER or call 911 if any headaches, dizziness, shortness of breath, chest pain, abdominal pain, bleeding, fevers, or worsening of medical condition. Patient was counseled about treatment plan, medications, possible side effects, patientverbalized understanding. All questions were answered to the best of my ability. This discharge took greater then 30 minutes in planning, reviewing documentation, counseling the patient, and discussing with other team members." ASSESSMENT ASSESSMENT Assessment Date of Service: Jun 08, 2025 Billing Provider: JIMBO REED DO Common Visit Codes: [id number] DISCH DAY >30min JIMBO REED DO Jun 08, 2025 12:41
[2025-06-08] MEDS ORDERED: AZIT-43 PO (12:42)
[2025-06-08 13:00] VITALS: BP 133/75; PULSE 85; RESP 17; TEMP 98; O2SAT 95
[2025-06-08 14:43] VITALS: BP 133/75; PULSE 89; RESP 17; TEMP 36.7; O2SAT 95
--- NOTE | 2025-06-10 07:45 | ECG ---
[facility] Test Date: 2025-06-05 Test Time: 12:05:49 Pat Name: KARRI MARTINEZ Department: Room: [address] [place] [address] 4 Gender: F Window Clerk: IVAN : 1985 Requested By: EMERGENCY EMERGENCY Order Number: [id number] Reading MD: Gordo Tse Measurements Intervals [place] Rate: 119 P: 27 WI: 151 QRS: 62 QRSD: 80 T: 26 QT: 335 QTc: 472 Interpretive Statements Sinus tachycardia Baseline wander in lead(s) II,aVF,V2 Electronically Signed On 06-10-2025 14:48:22 PST by Gordo Tse Please click the below link to view image of tracing.
== END 2025-06-08 17:45 | disposition home or self-care (01) | DRG 720 ==
LOC: ER 05:12 → EDBD 05:12 → OVERFLOW 12:04 → TELE-EAST 13:42
PROVIDERS: ATTEND Emergency Medicine
DX: A41.59 Other Gram-negative sepsis (principal); J15.69 Pneumonia due to other Gram-negative bacteria; I21.A1 Myocardial infarction type 2; I27.20 Pulmonary hypertension, unspecified; G90.89 Other disorders of autonomic nervous system; I24.9 Acute ischemic heart disease, unspecified; J15.9 Unspecified bacterial pneumonia; E66.812 Obesity, class 2; Z68.36 Body mass index [BMI] 36.0-36.9, adult; I51.7 Cardiomegaly; Z20.822 Contact with and (suspected) exposure to COVID-19; G47.33 Obstructive sleep apnea (adult) (pediatric); F41.9 Anxiety disorder, unspecified; Z80.0 Family history of malignant neoplasm of digestive organs; Z82.49 Family history of ischemic heart disease and other diseases of the circulatory system; Z83.3 Family history of diabetes mellitus; Z87.891 Personal history of nicotine dependence; Z79.899 Other long term (current) drug therapy; Z81.1 Family history of alcohol abuse and dependence
CPT/HCPCS: 36415; 71045; 80048; 80202; 81001; 82565; 83605; 84443; 84484; 85025; 85379; 87040; 87426; 87804; 93005; 93306; 96374; 99291; 99292; G0378; J1885; J2405